=== PATIENT | female | born 1985 | race Caucasian/White ===

== ENCOUNTER 2023-09-16 10:27 | Emergency (ER) | payer MEDICAID, OTHER ==
[~2023-09-16] VITALS: Ht 162.6 cm; Wt 83.6 kg
[2023-09-16 11:24] VITALS: BP 128/82; PULSE 91; RESP 16; TEMP 99.1; O2SAT 95
[2023-09-16] MEDS: SUMAtriptan SUCCINATE 6 MG/0.5 ML VL SC ONE (12:11)
[2023-09-16] MEDS ORDERED: AUG875T PO (13:16)
== END 2023-09-16 13:17 | disposition home or self-care (01) ==
LOC: ER 10:27
DX: J32.9 Chronic sinusitis, unspecified (principal)
CPT/HCPCS: 70450; 96372; 99285; J3030